=== PATIENT | male | born 1985 | race Two or more races ===

== ENCOUNTER 2025-02-17 12:58 | Inpatient (IN) | payer MEDICAID, OTHER ==
[~2025-02-17] VITALS: Ht 175.3 cm; Wt 108.0 kg
[2025-02-17 14:32] LABS: PLATELET COUNT (AUTO) 267 K/uL (150-450); RED BLOOD CELL COUNT(AUTO) 4.76 MIL/uL (4.50-5.90); RED CELL DISTRIBUTION WIDTH 13.6 % (11.5-14.5); WHITE BLOOD COUNT (AUTO) 5.4 K/uL (4.5-11.0)
[2025-02-17] MEDS: CEPHALEXIN MONOHYDRATE 500 MG CAPSULE PO ONE (14:35)
[2025-02-17] MEDS: ACETAMINOPHEN 500 MG TABLET PO ONE (14:35)
[2025-02-17 14:43] LABS: CALCIUM, TOTAL 8.8 mg/dL (8.8-10.5); CREATININE 0.87 mg/dL (0.60-1.30); GLOMERULAR FILTR. RATE CALC > 60 mL/min (>60); GLUCOSE,RANDOM 94 mg/dL (70-110); SODIUM SERUM 138 mmol/L (136-145); UREA NITROGEN, BLOOD 13 mg/dL (7-18)
[2025-02-17] MEDS ORDERED: MAGNESIUM HYDROXIDE SUSPENSION 30 ML UDCUP PO PRN (16:30)
[2025-02-17] MEDS ORDERED: ACETAMINOPHEN 325 MG TABLET PO PRN (16:30)
[2025-02-17] MEDS ORDERED: ZOLPIDEM TARTRATE 5 MG TABLET PO PRN (16:30)
[2025-02-17] MEDS: *CLINICAL-LEVOFLOXACIN IVPB DOSING CLINICAL ONE (16:33)
[2025-02-17] MEDS ORDERED: CIPROFLOXACIN HCL 0.3% 2.5 ML OPHTHALMIC SOLUTION AD SCH (18:00)
[2025-02-17 19:38] VITALS: BP 151/91; PULSE 92; RESP 19; TEMP 97.9; O2SAT 94
[2025-02-17] MEDS: OxyCODONE HCL/ACETAMINOPHEN 5-325 MG TABLET PO PRN (19:43)
[2025-02-17] MEDS ORDERED: SODIUM CHLORIDE 0.9% 500 ML IV ONE (21:33)
[2025-02-17] MEDS: DOCUSATE SODIUM 100 MG CAPSULE PO SCH (21:40)
[2025-02-17] MEDS: CIPROFLOXACIN HCL 0.3% 2.5 ML OPHTHALMIC SOLUTION AD SCH (21:40)
[2025-02-17] MEDS: LEVOFLOXACIN 750 MG/D5% WATER 150 ML IV SCH (21:43)
[2025-02-18 04:25] VITALS: BP 132/87; PULSE 84; RESP 19; TEMP 98.1; O2SAT 98
[2025-02-18 08:19] VITALS: BP 128/95; PULSE 68; RESP 18; TEMP 98.1; O2SAT 98
[2025-02-18] MEDS: FAMOTIDINE 20 MG TABLET PO SCH (08:35)
[2025-02-18 20:00] VITALS: BP 118/74; PULSE 88; RESP 18; TEMP 98.6; O2SAT 97
[2025-02-18] MEDS: ONDANSETRON HCL 4 MG/2 ML VIAL IVP PRN (21:53)
[2025-02-19 04:00] VITALS: BP 121/83; PULSE 71; RESP 18; TEMP 98.1; O2SAT 98
[2025-02-19 08:13] VITALS: BP 116/80; PULSE 71; RESP 18; TEMP 97.9; O2SAT 100
[2025-02-19] MEDS: CIPROFLOXACIN HCL 0.2%/HYDROCORT 1% 10 ML OTIC SUSPENSION AD SCH (17:03)
[2025-02-19] MEDS ORDERED: CIPOTIC AU (17:39)
[2025-02-19] MEDS ORDERED: ACET-2247 PO (17:40)
[2025-02-19] MEDS ORDERED: LEVO750T68 PO (17:41)
[2025-02-19] MEDS ORDERED: CIPR2.5D17 OD (17:47)
== END 2025-02-19 19:00 | DRG 156 ==
LOC: EDBD 12:58 → EMS 12:58 → EDH 16:29 → 6N 17:38
PROVIDERS: ADMIT Internal Medicine; ATTEND Internal Medicine
DX: H60.20 Malignant otitis externa, unspecified ear (principal); H60.91 Unspecified otitis externa, right ear; E66.9 Obesity, unspecified; H66.90 Otitis media, unspecified, unspecified ear; Z68.35 Body mass index [BMI] 35.0-35.9, adult
CPT/HCPCS: 70450; 80048; 85025; 99285; J1956; J2405; J7040